=== PATIENT | female | born 1975 | race Caucasian/White ===

== ENCOUNTER 2022-03-20 16:31 | Emergency (ER) | payer OTHER ==
[~2022-03-20] VITALS: Ht 162.6 cm; Wt 61.8 kg
[2022-03-20 16:38] VITALS: BP 138/72
[2022-03-20] MEDS ORDERED: MOTRIN800 MG PO (16:42)
[2022-03-20] MEDS ORDERED: FLEXERIL5 M1 PO (16:42)
[2022-03-20 16:46] VITALS: BP 111/67
[2022-03-20 17:00] VITALS: BP 113/76
[2022-03-20 17:15] VITALS: BP 103/69
[2022-03-20 17:30] VITALS: BP 108/66
== END 2022-03-20 18:08 | disposition home or self-care (01) | DRG 605 ==
LOC: ED 16:31
DX: S80.11XA Contusion of right lower leg, initial encounter (principal); S50.01XA Contusion of right elbow, initial encounter; V49.49XA Driver injured in collision with other motor vehicles in traffic accident, initial encounter